=== PATIENT | female | born 2000 | race Caucasian/White ===

== ENCOUNTER 2018-05-06 00:29 | Inpatient (IN) | payer OTHER, MEDICAID ==
[2018-05-07] MEDS ORDERED: Ondansetron 4 MG/2 ML SDV IV PRN (00:01)
[2018-05-07] MEDS ORDERED: Methylergonovine 0.2 MG/1 ML Amp IM PRN (00:01)
[2018-05-07] MEDS ORDERED: Lidocaine 1% 30 ML SDV INJECT PRN (00:01)
[2018-05-07] MEDS ORDERED: Carboprost Tromethamine 250 MCG/1 ML Amp IM PRN (00:01)
[2018-05-07] MEDS ORDERED: Misoprostol 400 MCG (4 X 100 MCG TAB) RECTAL PRN (00:01)
[2018-05-07] MEDS ORDERED: Acetaminophen 325 MG Tab PO PRN ×2 (00:01)
[2018-05-07] MEDS ORDERED: Lactated Ringers 500 ML IV ONE (00:01)
[2018-05-07] MEDS ORDERED: Oxytocin/Normal Saline 30 UNIT/500 ML BAG IV SCH ×2 (00:01)
[2018-05-07] MEDS ORDERED: Tranexamic Acid 1,000 MG in Sodium Chloride 0.9% 100 ML IV PRN (00:01)
[2018-05-07] MEDS ORDERED: Sodium Chloride 0.9% 10 ML Syringe FLUSH PRN (00:01)
[2018-05-07] MEDS: Misoprostol 25 MCG (1/4 of 100 MCG) Tab VAG PRN ×6 (00:59→21:49)
--- NOTE | 2018-05-07 01:19 | PCM.LDHP ---
<Prema Elkins M - Last Filed: 05/07/18 01:34> L&D History of Present Illness - General Date of Service: 05/07/18 Admit Problem/Dx: Patient Status Order with Admit Dx/Problem 05/07/18 00:01 Patient Status [ADT] Routine Admission Diagnosis/Problem Admission Diagnosis/Problem Induction of labor 05/07/18 01:15 Source of Information: Patient History Limitations: Reports: No Limitations - History of Present Illness Introduction:: Megan is a 17 year-old presenting for induction of labor. She denies vaginal bleeding, leakage of fluid, or regular contractions. has been complicated by gonorrhea which was treated and test of cure confirmed. She denies headache, blurry vision, abdominal pain, shortness of breath, and leg edema. - Related Data Allergies/Adverse Reactions: Allergies Allergy/AdvReac Type Severity Reaction Status Date / Time No Known Allergies Allergy Verified 05/07/18 00:59 Home Medications: Home Meds Vits #93/Iron Fum/FA [ Formula Tablet] 1 tab PO DAILY 05/07/18 [History] Past Medical History Cardiovascular History: Reports: None Respiratory History: Reports: None Gastrointestinal History: Reports: None Genitourinary History: Reports: None : 1 Para: 0 Social & Family History - Family History Family Medical History: Noncontributory H&P Review of Systems - Review of Systems: Review Of Systems: See Below General: Reports: No Symptoms. Denies: Fever, Chills, Fatigue HEENT: Reports: No Symptoms Pulmonary: Reports: No Symptoms. Denies: Shortness of Breath Cardiovascular: Reports: No Symptoms Gastrointestinal: Reports: No Symptoms. Denies: Abdominal Pain, Nausea Genitourinary: Reports: No Symptoms Musculoskeletal: Reports: No Symptoms Skin: Reports: No Symptoms L&D Exam - Exam Exam: See Below - Vital Signs Weight: 95.254 kg - OB Specific Contraction Duration (sec): None Contraction Frequency (min): None Movement: Active Heart Rate (FHR) Variability: Moderate (6-25 bmp) Presentation: Vertex, confirmed by bedside US - Exam General: Alert, Oriented, Cooperative, Other (No distress) HEENT: Conjunctiva Clear, EOMI Neck: Supple Lungs: Clear to Auscultation, Normal Respiratory Effort Cardiovascular: Regular Rate, Regular Rhythm, Other (No murmur) GI/Abdominal Exam: Normal Bowel Sounds, Non-Tender, Other (Gravid) Genitourinary: Other (Sterile cervical exam: 1cm/60%/-2) Extremities: No Pedal Edema. No: Castillo's Sign Skin: Warm, Dry, Intact - Patient Data Lab Results Last 24 hrs: Laboratory Results - last 24 hr 05/07/18 Range/Units 00:40 WBC 11.0 H (5.0-10.0) 10^3/uL RBC 3.91 L (4.2-5.4) 10^6/uL Hgb 12.0 (12.0-16.0) g/dL Hct 34.7 L (37.0-47.0) % MCV 88.7 (80-100) fL MCH 30.7 (27.0-34.0) pg MCHC 34.6 (33.0-35.0) g/dL Plt Count 243 (150-450) 10^3/uL Result Diagrams: 05/07/18 00:40 - Problem List (1) Encounter for induction of labor SNOMED Code(s): 033211791 ICD Code: Z34.90 - ENCNTR FOR SUPRVSN OF NORMAL , UNSP, UNSP TRIMESTER Status: Acute Current Visit: Yes Problem List Initiated/Reviewed/Updated: Yes Orders Last 24hrs: Active Orders 24 hr Category Date Time Status Patient Status [ADT] Routine ADT 05/07/18 00:01 Active Communication Order [RC] ASDIRECTED Care 05/07/18 00:01 Active Communication Order [RC] ASDIRECTED Care 05/07/18 00:01 Active Communication Order [RC] ASDIRECTED Care 05/07/18 00:01 Active Communication Order [RC] ASDIRECTED Care 05/07/18 00:01 Active Communication Order [RC] ASDIRECTED Care 05/07/18 00:01 Active Communication Order [RC] ASDIRECTED Care 05/07/18 00:01 Active Heart Tones [RC] PER UNIT ROUTINE Care 05/07/18 00:01 Active Monitoring [RC] PER UNIT ROUTINE Care 05/07/18 00:01 Active Non Stress Test [RC] PER UNIT ROUTINE Care 05/07/18 00:01 Active Non Stress Test [RC] PER UNIT ROUTINE Care 05/07/18 00:01 Active Notify Provider Vital Signs OB [RC] ASDIRECTED Care 05/07/18 00:01 Active Notify Provider [RC] PRN Care 05/07/18 00:01 Active Notify Provider [RC] PRN Care 05/07/18 00:01 Active Notify Provider [RC] PRN Care 05/07/18 00:01 Active Notify Provider [RC] STAT Care 05/07/18 00:01 Active Peripheral IV Care [RC] . DIRECTED Care 05/07/18 00:01 Active Pump Management, Intrathecal [RC] ASDIRECTED Care 05/07/18 00:01 Active Up ad Deborah [RC] ASDIRECTED Care 05/07/18 00:01 Active Up ad Deborah [RC] PER UNIT ROUTINE Care 05/07/18 00:01 Active Vaginal Exam [RC] PRN Care 05/07/18 00:01 Active Vital Signs [RC] PER UNIT ROUTINE Care 05/07/18 00:01 Active Vital Signs [RC] PER UNIT ROUTINE Care 05/07/18 00:01 Active Acetaminophen [Tylenol] Med 05/07/18 00:01 Active 650 mg PO Q4H PRN Acetaminophen [Tylenol] Med 05/07/18 00:01 Active 650 mg PO Q4H PRN Carboprost Tromethamine [Hemabate DS] Med 05/07/18 00:01 Active 250 mcg IM ASDIRECTED PRN Lactated Ringers [Ringers, Lactated] 1,000 ml Med 05/07/18 00:01 Active IV ASDIRECTED Lidocaine 1% [Xylocaine-MPF 1%] Med 05/07/18 00:01 Active 10 ml INJECT ASDIRECTED PRN Methylergonovine [Methergine] Med 05/07/18 00:01 Active 0.2 mg IM ASDIRECTED PRN Ondansetron [Zofran] Med 05/07/18 00:01 Active 4 mg IV Q4H PRN Oxytocin/Normal Saline [Pitocin in NS 30 UNIT/500 ML] Med 05/07/18 00:01 Active 30 unit in 500 ml IV TITRATE Sodium Chloride 0.9% [Saline Flush] Med 05/07/18 00:01 Active 10 ml FLUSH ASDIRECTED PRN Tranexamic Acid [Cyklokapron] 1,000 mg Med 05/07/18 00:01 Active Sodium Chloride 0.9% [Normal Saline] 100 ml IV ONETIME miSOPROStol [Cytotec] Med 05/07/18 00:01 Active 25 mcg VAG Q4H PRN miSOPROStol [Cytotec] Med 05/07/18 00:01 Active 800 mcg RECTAL ASDIRECTED PRN Peripheral IV Insertion Adult [OM.PC] Urgent Oth 05/07/18 00:01 Ordered Saline Lock Insert [OM.PC] Routine Oth 05/07/18 00:01 Ordered Resuscitation Status Routine Resus Stat 05/06/18 08:44 Ordered Medication Orders Acetaminophen (Tylenol) 650 mg PO Q4H PRN PRN Reason: Pain (Mild 1-3) and fever Acetaminophen (Tylenol) 650 mg PO Q4H PRN PRN Reason: Pain/Fever Carboprost Tromethamine (Hemabate Ds) 250 mcg IM ASDIRECTED PRN PRN Reason: HEMORRHAGE Lactated Ringer's (Ringers, Lactated) 1,000 mls @ 125 mls/hr IV ASDIRECTED LJ Oxytocin/Sodium Chloride (Pitocin In Ns 30 Unit/500 Ml) 30 unit in 500 mls @ 2 mls/hr IV TITRATE LJ; Protocol Tranexamic Acid 1,000 mg/ (Sodium Chloride) 110 mls @ 660 mls/hr IV ONETIME PRN PRN Reason: Bleeding Lidocaine HCl (Xylocaine-Mpf 1%) 10 ml INJECT ASDIRECTED PRN PRN Reason: Perineal Repair Methylergonovine Maleate (Methergine) 0.2 mg IM ASDIRECTED PRN PRN Reason: Hemorrhage Misoprostol (Cytotec) 800 mcg RECTAL ASDIRECTED PRN PRN Reason: Hemorrhage Misoprostol (Cytotec) 25 mcg VAG Q4H PRN PRN Reason: cervical ripening Last Admin: 05/07/18 00:59 Dose: 25 mcg Ondansetron HCl (Zofran) 4 mg IV Q4H PRN PRN Reason: Nausea/Vomiting Sodium Chloride (Saline Flush) 10 ml FLUSH ASDIRECTED PRN PRN Reason: Keep Vein Open Assessment/Plan Comment:: Patient is a 17 year-old female presenting for induction of labor. GBS negative. Vertex presentation confirmed. Will proceed with placement of cytotec for cervical ripening. Plan to reassess cervix in 4 hours. <Alphonse Aleman Nicole - Last Filed: 05/07/18 08:47> L&D History of Present Illness - General Admit Problem/Dx: Patient Status Order with Admit Dx/Problem 05/07/18 00:01 Patient Status [ADT] Routine Admission Diagnosis/Problem Admission Diagnosis/Problem complications L&D Exam - Vital Signs Vital Signs: Last Vital Signs Temp 97.4 F 05/07/18 04:25 Pulse 79 05/07/18 04:25 Resp 18 05/07/18 04:25 BP 112/57 L 05/07/18 04:25 Pulse Ox 100 05/07/18 00:22 - Patient Data Lab Results Last 24 hrs: Laboratory Results - last 24 hr 05/07/18 Range/Units 00:40 WBC 11.0 H (5.0-10.0) 10^3/uL RBC 3.91 L (4.2-5.4) 10^6/uL Hgb 12.0 (12.0-16.0) g/dL Hct 34.7 L (37.0-47.0) % MCV 88.7 (80-100) fL MCH 30.7 (27.0-34.0) pg MCHC 34.6 (33.0-35.0) g/dL Plt Count 243 (150-450) 10^3/uL Result Diagrams: 05/07/18 00:40 Orders Last 24hrs: Active Orders 24 hr Category Date Time Status Patient Status [ADT] Routine ADT 05/07/18 00:01 Active Communication Order [RC] ASDIRECTED Care 05/07/18 00:01 Active Communication Order [RC] ASDIRECTED Care 05/07/18 00:01 Active Communication Order [RC] ASDIRECTED Care 05/07/18 00:01 Active Communication Order [RC] ASDIRECTED Care 05/07/18 00:01 Active Communication Order [RC] ASDIRECTED Care 05/07/18 00:01 Active Communication Order [RC] ASDIRECTED Care 05/07/18 00:01 Active Heart Tones [RC] PER UNIT ROUTINE Care 05/07/18 00:01 Active Monitoring [RC] PER UNIT ROUTINE Care 05/07/18 00:01 Active Non Stress Test [RC] PER UNIT ROUTINE Care 05/07/18 00:01 Active Notify Provider Vital Signs OB [RC] ASDIRECTED Care 05/07/18 00:01 Active Notify Provider [RC] PRN Care 05/07/18 00:01 Active Notify Provider [RC] PRN Care 05/07/18 00:01 Active Notify Provider [RC] PRN Care 05/07/18 00:01 Active Notify Provider [RC] STAT Care 05/07/18 00:01 Active Peripheral IV Care [RC] . DIRECTED Care 05/07/18 00:01 Active Pump Management, Intrathecal [RC] ASDIRECTED Care 05/07/18 00:01 Active Up ad Deborah [RC] ASDIRECTED Care 05/07/18 00:01 Active Up ad Deborah [RC] PER UNIT ROUTINE Care 05/07/18 00:01 Active Vaginal Exam [RC] PRN Care 05/07/18 00:01 Active Vital Signs [RC] PER UNIT ROUTINE Care 05/07/18 00:01 Active Vital Signs [RC] PER UNIT ROUTINE Care 05/07/18 00:01 Active Acetaminophen [Tylenol] Med 05/07/18 00:01 Active 650 mg PO Q4H PRN Acetaminophen [Tylenol] Med 05/07/18 00:01 Active 650 mg PO Q4H PRN Carboprost Tromethamine [Hemabate DS] Med 05/07/18 00:01 Active 250 mcg IM ASDIRECTED PRN Lactated Ringers [Ringers, Lactated] 1,000 ml Med 05/07/18 00:01 Active IV ASDIRECTED Lidocaine 1% [Xylocaine-MPF 1%] Med 05/07/18 00:01 Active 10 ml INJECT ASDIRECTED PRN Methylergonovine [Methergine] Med 05/07/18 00:01 Active 0.2 mg IM ASDIRECTED PRN Ondansetron [Zofran] Med 05/07/18 00:01 Active 4 mg IV Q4H PRN Oxytocin/Normal Saline [Pitocin in NS 30 UNIT/500 ML] Med 05/07/18 00:01 Active 30 unit in 500 ml IV TITRATE Sodium Chloride 0.9% [Saline Flush] Med 05/07/18 00:01 Active 10 ml FLUSH ASDIRECTED PRN Tranexamic Acid [Cyklokapron] 1,000 mg Med 05/07/18 00:01 Active Sodium Chloride 0.9% [Normal Saline] 100 ml IV ONETIME miSOPROStol [Cytotec] Med 05/07/18 00:01 Active 25 mcg VAG Q4H PRN miSOPROStol [Cytotec] Med 05/07/18 00:01 Active 800 mcg RECTAL ASDIRECTED PRN Peripheral IV Insertion Adult [OM.PC] Urgent Oth 05/07/18 00:01 Ordered Saline Lock Insert [OM.PC] Routine Oth 05/07/18 00:01 Ordered Resuscitation Status Routine Resus Stat 05/06/18 08:44 Ordered Medication Orders Acetaminophen (Tylenol) 650 mg PO Q4H PRN PRN Reason: Pain (Mild 1-3) and fever Acetaminophen (Tylenol) 650 mg PO Q4H PRN PRN Reason: Pain/Fever Carboprost Tromethamine (Hemabate Ds) 250 mcg IM ASDIRECTED PRN PRN Reason: HEMORRHAGE Lactated Ringer's (Ringers, Lactated) 1,000 mls @ 125 mls/hr IV ASDIRECTED LJ Oxytocin/Sodium Chloride (Pitocin In Ns 30 Unit/500 Ml) 30 unit in 500 mls @ 2 mls/hr IV TITRATE LJ; Protocol Tranexamic Acid 1,000 mg/ (Sodium Chloride) 110 mls @ 660 mls/hr IV ONETIME PRN PRN Reason: Bleeding Lidocaine HCl (Xylocaine-Mpf 1%) 10 ml INJECT ASDIRECTED PRN PRN Reason: Perineal Repair Methylergonovine Maleate (Methergine) 0.2 mg IM ASDIRECTED PRN PRN Reason: Hemorrhage Misoprostol (Cytotec) 800 mcg RECTAL ASDIRECTED PRN PRN Reason: Hemorrhage Misoprostol (Cytotec) 25 mcg VAG Q4H PRN PRN Reason: cervical ripening Last Admin: 05/07/18 05:06 Dose: 25 mcg Admin: 05/07/18 00:59 Dose: 25 mcg Ondansetron HCl (Zofran) 4 mg IV Q4H PRN PRN Reason: Nausea/Vomiting Sodium Chloride (Saline Flush) 10 ml FLUSH ASDIRECTED PRN PRN Reason: Keep Vein Open Assessment/Plan Comment:: seen and agreed. DCW
--- NOTE | 2018-05-07 05:22 | PCM.PNLD ---
Labor Progress Note - VS & Meds Vital Signs: Last Vital Signs Temp 97.5 F 05/07/18 01:30 Pulse 87 05/07/18 01:30 Resp 16 05/07/18 01:30 BP 134/77 05/07/18 01:30 Pulse Ox 100 05/07/18 00:22 Active Medications: Current Medications Acetaminophen (Tylenol) 650 mg PO Q4H PRN PRN Reason: Pain (Mild 1-3) and fever Acetaminophen (Tylenol) 650 mg PO Q4H PRN PRN Reason: Pain/Fever Carboprost Tromethamine (Hemabate Ds) 250 mcg IM ASDIRECTED PRN PRN Reason: HEMORRHAGE Lactated Ringer's (Ringers, Lactated) 1,000 mls @ 125 mls/hr IV ASDIRECTED LJ Oxytocin/Sodium Chloride (Pitocin In Ns 30 Unit/500 Ml) 30 unit in 500 mls @ 2 mls/hr IV TITRATE LJ; Protocol Tranexamic Acid 1,000 mg/ (Sodium Chloride) 110 mls @ 660 mls/hr IV ONETIME PRN PRN Reason: Bleeding Lidocaine HCl (Xylocaine-Mpf 1%) 10 ml INJECT ASDIRECTED PRN PRN Reason: Perineal Repair Methylergonovine Maleate (Methergine) 0.2 mg IM ASDIRECTED PRN PRN Reason: Hemorrhage Misoprostol (Cytotec) 800 mcg RECTAL ASDIRECTED PRN PRN Reason: Hemorrhage Misoprostol (Cytotec) 25 mcg VAG Q4H PRN PRN Reason: cervical ripening Last Admin: 05/07/18 05:06 Dose: 25 mcg Ondansetron HCl (Zofran) 4 mg IV Q4H PRN PRN Reason: Nausea/Vomiting Sodium Chloride (Saline Flush) 10 ml FLUSH ASDIRECTED PRN PRN Reason: Keep Vein Open Discontinued Medications Lactated Ringer's (Ringers, Lactated) 500 mls @ 500 mls/hr IV .BOLUS ONE Stop: 05/07/18 01:00 - Uterine Contractions Uterine Monitoring Mode: External [place] Contraction Frequency (min): Approximately every 2 minutes Contraction Duration (sec): 1 minute Contraction Intensity: Mild Uterine Resting Tone: Soft - Monitoring Heart Rate (FHR) Baseline: 120 Heart Rate (FHR) Variability: Moderate (6-25 bmp) Accelerations: Present, 15x15 Strip Review: Category I - Vaginal Exam Dilation (cm): 1 Effacement (Percent): 60 Station: -2 Cervical Position: Midposition Sterile Vaginal Exam Performed By: Prema Elkins Vaginal Exam Comment: cytotec placed with this exam
--- NOTE | 2018-05-07 10:12 | PN ---
DATE: 05/07/2018 SUBJECTIVE: The patient denies any headaches, visual changes, or upper abdominal pain. She does not feel much for contractions. OBJECTIVE: heart tones in the 120s to 130s range. Vaginal exam to be done around 9:09 when the next dose of Cytotec is due. Blood pressure 138/91 and of note, initial blood pressure was 141/85, recheck was 136/84. She is now status post NST followed by Cytotec x2 and due for a third dose at 9:09. ASSESSMENT: 1. Intrauterine at 40 and 2/7 weeks by 6 and 6/7-week ultrasound with suspected gestational versus transient hypertension versus preeclampsia. We will do labs for preeclampsia. Follow blood pressures closely. Follow for signs or symptoms of severe preeclampsia. 2. Group B Streptococcus negative. 3. History of gonococcal disease treated in 09/2017, negative in 03/2018, in a G1, P0. PLAN: As above. Please see orders for further details. Plans were discussed with the patient and her father. They understand and agree. [facility] /[id number]
--- NOTE | 2018-05-07 10:24 | OBOUT ---
DATE: 05/07/2018 DATE AND TIME OF NST: Date: 05/07/2018 Time: 0040 hours to 0100 hours. REASON FOR NST: 1. Intrauterine at 40 and 2/7 weeks by 6 and 6/7-week ultrasound. 2. GBS negative. 3. Positive Gonorrhea treated in 09/2017, negative in 03/2018. 4. G1, P0. NST INTERPRETATION: During this time period, heart tone baseline is approximately 125 to 130 and there are at least two 15 x 15 beat per minute accelerations, making this strip reactive. It is also noted to be reassuring. Tocometer reveals potential of some irritability. No contractions. ASSESSMENT: 1. Nonstress test, reactive and reassuring. 2. Tocometer with occasional irritability. No contractions felt. Blood pressure initially 141/85, recheck 136/84, heart rate between 91 and 101, and temperature 97.5. PLAN: Please see H and P done and updated through [employer] with Dr. Elkins. I suspect transient hypertension related to nervousness as blood pressure came down thereafter. Cytotec was given, and the patient was followed closely thereafter. For H and P, records were called for, reviewed, and supplemented by the patient's history as well as review of systems reviewed fully. Please see H and P and [facility]-updated scan chart. [facility] /[id number]
[2018-05-07] MEDS ORDERED: Misoprostol 50 MCG (1/2 of 100 MCG) Tab VAG ONE (21:40)
[2018-05-08] MEDS: Lactated Ringers 1,000 ML IV SCH ×4 (02:04→23:45)
[2018-05-08] MEDS ORDERED: Nalbuphine 10 MG/1 ML Vial IM ONE (07:21)
[2018-05-08] MEDS ORDERED: Bupivacaine 0.75%/D5W 2 ML Amp ONE (09:43)
[2018-05-08] MEDS ORDERED: EPINEPHrine 1 MG/ML SDV ONE (09:44)
[2018-05-08] MEDS ORDERED: fentaNYL 100 MCG/2 ML SDV ONE (09:44)
--- NOTE | 2018-05-08 09:54 | PN ---
DATE: 05/07/2018 SUBJECTIVE: The patient is feeling occasional contractions. OBJECTIVE: heart tones in the 125 to 130 range. Acceleration noted with vaginal exam. Tocometer reveals occasional contraction. Vaginal exam reveals her to be 1.5 cm, 60% to 70% effaced, -1 station, vertex suspected, and Cytotec 25 mcg was subsequently placed for making this her fourth total dose. ASSESSMENT: 1. Intrauterine at 40 and 2/7 weeks by 6 and 6/7-week ultrasound. 2. Group B streptococcus negative. 3. G1, P0 with suspected transient hypertension. Blood pressures have become more normalized. We will continue to follow clinically and closely for signs or symptoms of preeclampsia. Preeclampsia labs were done as well. Please see [facility] for further details. PLAN: Fourth dose of Cytotec has been placed. We will follow clinically and closely, re-evaluate as needed, and in approximately 4 hours re-evaluate for potential need for another Cytotec if need be. [facility] /[id number]
--- NOTE | 2018-05-08 09:56 | PN ---
DATE: 05/08/2018 SUBJECTIVE: The patient's contractions are getting stronger. She is now status post Cytotec x6, and Pitocin augmentation was started last night. OBJECTIVE: heart tones have been in the 120s to 130s, appear to be reassuring. Tocometer when reading, contractions are every 1.5 to 3 to 4 minutes apart. Vaginal exam reveals to be 2 cm, 80% effaced, -1 station, and vertex suspected. Artificial rupture of membranes was done after discussion with the patient. Pitocin is currently at 10 milliunits per minute. ASSESSMENT: 1. Intrauterine at 40 and 2/7 weeks by 6 and 6/7-week ultrasound. 2. Group B streptococcus negative. 3. G1, P0 with history of gonococcal disease that was treated and negative in 03/2018 with suspected gestational versus transient hypertension. Her blood pressures have been elevated at times, and then others have been within normal limits. 4. Preeclampsia labs were done, felt to be within normal limits with protein- creatinine ratio of 0.15. PLAN: Now status post Cytotec x6, Pitocin augmentation, and artificial rupture of membranes as above. We will continue to follow up clinically and closely. The patient understands and agrees with the above treatment plan. [facility] /[id number]
--- NOTE | 2018-05-08 10:15 | PN ---
DATE: 05/08/2018 SUBJECTIVE: The patient's contractions are getting stronger. She continued to have vaginal leaking. OBJECTIVE: heart tones in the 125s to 130s with an acceleration noted with vaginal exam. Tocometer has poor reading for contractions and unsure where they are at. Vaginal exam reveals her to be 3 cm, 80% effaced, -1 station, vertex suspected, and IUPC placed after discussion with the patient. ASSESSMENT: 1. Intrauterine at 40 and 3/7 weeks by a 6 and 6/7-week ultrasound. 2. Group B Streptococcus negative. 3. G1, P0 with suspected gestational hypertension. 4. Now status post nonstress test, Cytotec x6, Pitocin augmentation, artificial rupture of membranes, and IUPC placed as above. PLAN: We will continue to follow clinically and closely. We will follow her contraction pattern closely as well. She is starting to have some cervical change, and this was discussed with the patient. [facility] /[id number]
--- NOTE | 2018-05-08 10:53 | PCM.PRNOTE ---
- Free Text/Narrative Note: Requested to provide analgesia to full term patient in severe pain. Upon entering the room, patient is lying on right side complaining of severe abdominal/pelvic pain and discomfort. Procedure was discussed with patient including adverse outcomes and expectations. Pt consented to analgesia, SAB/ IT. Pt placed into a proper sitting position. Landmarks for SAB/IT were identified and marked. Hands were washed and appropriate PPE was applied. Back was prepped with betadine x3. A sterile, transparent, fenestrated drape was applied. Excess betadine was removed. Using 3 mL of a 1% lidocaine solution , a skin wheel was placed at the L2/L3 interspace. A 24 ga (4 inch) Pencan spinal needle was inserted until positive for CSF. Negative for heme or paresthesias. Injected fentanyl 30 mcg, sufentanil 25 mcg, and 9 mg of a 0.75% bupivacaine solution with an epi wash. Pt was placed left lateral position for approximately 20 minutes. There were zero complications or adverse outcomes. Will continue to monitor. Procedure Date & Time: 05-08-2018 [id number]
[2018-05-08] MEDS ORDERED: Oxytocin/Normal Saline 60 UNIT/1,000 ML BAG ONE (12:03)
[2018-05-08] MEDS ORDERED: diphenhydrAMINE 50 MG/ML SDV IVPUSH PRN (12:21)
[2018-05-08] MEDS ORDERED: Ondansetron 4 MG/2 ML SDV IV PRN (12:21)
[2018-05-08] MEDS ORDERED: ceFAZolin 2 GM in Premix Bag 1 BAG IV ONE (12:21)
[2018-05-08] MEDS ORDERED: Naloxone 2 MG/2 ML Syringe IVPUSH PRN (12:21)
[2018-05-08] MEDS ORDERED: ePHEDrine 50 MG/ML SDV IVPUSH PRN (12:21)
[2018-05-08] MEDS ORDERED: Oxytocin/Normal Saline 30 UNIT/500 ML BAG IV SCH (12:30)
[2018-05-08] MEDS ORDERED: Sodium Chloride 0.9% 100 ML ONE (12:32)
[2018-05-08] MEDS ORDERED: Morphine PF 30 MG/30 ML PCA Vial IV PRN (13:12)
[2018-05-08] MEDS ORDERED: Morphine PF 150 MG/30 ML PCA Syringe IV PRN (13:16)
[2018-05-08] MEDS: Simethicone 80 MG Tab.Chew PO SCH ×3 (21:18→21:20)
[2018-05-08] MEDS: Ketorolac 30 MG/ML SDV IVPUSH SCH (21:20)
[2018-05-09] MEDS: Ketorolac 30 MG/ML SDV IVPUSH SCH ×2 (03:19→09:58)
[2018-05-09] MEDS: Lactated Ringers 1,000 ML IV SCH (08:06)
[2018-05-09] MEDS: Simethicone 80 MG Tab.Chew PO SCH ×4 (10:00→23:25)
[2018-05-09] MEDS: Prenatal Multivitamin with Calcium/Folic Acid/Iron Tab PO SCH (10:00)
[2018-05-09] MEDS: Docusate Sodium 100 MG Cap PO PRN (10:01)
[2018-05-09] MEDS: Acetaminophen/oxyCODONE 325-5 MG Tab PO PRN ×2 (11:34→17:35)
--- NOTE | 2018-05-09 16:52 | PN ---
DATE: 05/09/2018 LOCATION: [facility] SUBJECTIVE: The patient is postoperative day #1, status post primary for failed -induced hypertension induction. The mom and baby are both doing well. The patient is currently using her ENGINEERING TECHNICAL WRITER. OBJECTIVE: Vital Signs: The patient's blood pressure 111-135/70-82, heart rate 74 to 122, and the patient's temp 37.5. She has been afebrile. Respiratory rate 14 to 16, and O2 sat 96% to 99%. Abdomen: Benign. Extremities: No tenderness, no edema. Hemoglobin prior to delivery was 12.1. This morning, white blood cell count 12.9, and platelets 135. ASSESSMENT AND PLAN: Postoperative day #1, status post primary section for failed PIH induction. The patient's blood pressures are improving. We will d/c the ENGINEERING TECHNICAL WRITER, and we will continue p.o. pain relief. We will d/c the [place]. Make sure she can void and continue to encourage ambulating and p.o. intake, and we will start iron due to the mild anemia. Otherwise, continue postoperative care. [facility] /[id number] MAHENDRA
[2018-05-09] MEDS: Ibuprofen 800 MG Tab PO PRN (17:35)
[2018-05-10] MEDS: Prenatal Multivitamin with Calcium/Folic Acid/Iron Tab PO SCH (09:49)
[2018-05-10] MEDS: Acetaminophen/oxyCODONE 325-5 MG Tab PO PRN ×3 (09:50→20:33)
[2018-05-10] MEDS: Ibuprofen 800 MG Tab PO PRN ×2 (09:50→20:32)
[2018-05-10] MEDS: Simethicone 80 MG Tab.Chew PO SCH ×4 (09:50→20:32)
--- NOTE | 2018-05-10 13:56 | PN ---
DATE: 05/10/2018 LOCATION: [facility]. SUBJECTIVE: The patient is postoperative day #2 from a primary low-transverse C - section for failed PIH induction. Mom and baby are both doing well. She is ambulating, voiding, tolerating p.o., had good pain control. PHYSICAL EXAMINATION: VITAL SIGNS: The patient is afebrile. Heart rate 106 to 125, blood pressure 93 - 118/50-82, respiratory rate 14 to 16, O2 sat 96 to 98%. ABDOMEN: Benign. Fundus is firm. Incision is healing well. LABORATORY DATA: The patient's blood type is B positive. She is rubella immune. Preoperatively, the patient's hemoglobin was normal; postoperatively, it is 9.0; platelets 175 consistent with some mild acute blood loss anemia. ASSESSMENT AND PLAN: Postoperative day #2, status post primary low-transverse C - section. Mom and baby are both doing well. We will continue iron and postoperative care and likely discharge tomorrow. [facility] /[id number] MTDD
[2018-05-10] MEDS: Docusate Sodium 100 MG Cap PO PRN (20:32)
[2018-05-11] MEDS: Simethicone 80 MG Tab.Chew PO SCH (09:04)
[2018-05-11] MEDS: Docusate Sodium 100 MG Cap PO PRN (09:04)
[2018-05-11] MEDS: Prenatal Multivitamin with Calcium/Folic Acid/Iron Tab PO SCH (09:04)
[2018-05-11] MEDS: Ibuprofen 800 MG Tab PO PRN (09:05)
--- NOTE | 2018-05-11 10:57 | PN ---
DATE: 05/08/2018 SUBJECTIVE: The patient is status post intrathecal. She has been resting quietly. No pain is felt. OBJECTIVE: heart tones variability has been minimal around the 120s, though with vaginal exam, acceleration is noted. Early decelerations are detected. Tocometer reveals contractions anywhere from 1.5 to 6 minutes apart. Vaginal exam reveals her to be complete with mild caput noted at 0 station. ASSESSMENT AND PLAN: 1. Intrauterine , now 40 and 3/7 weeks by 6 and 6/7-week ultrasound. 2. Group B streptococcus negative. 3. G1, P0 with gestational hypertension. Blood pressure under control now, status post intrathecal as well as 6 doses of Cytotec, Pitocin augmentation, artificial rupture of membranes, and IUPC placement. Due to concerns with heart tones and now that she is in the second stage of labor, will start pushing. Prior to this, oxygen has been started as well as positional changes and IV fluids; and we will continue to follow clinically and closely at this point in time and start the patient pushing. [facility] /[id number]
--- NOTE | 2018-05-11 11:03 | PN ---
DATE: 05/08/2018 SUBJECTIVE: The patient has been in the second stage of labor. She has been pushing. Nurses note vaginal bleeding, and they called me with concerns with heart tones with decelerations down into the 70s to 80s. OBJECTIVE: Vaginal exam reveals to be complete with good pushing effort, minimal descent, and at about a 0 station. heart tones have minimal variability at times as well as appears to be recurrent decelerations as low as in the 70s and 80s. After contractions, she had decelerations down into the 80s to 90s that persisted despite vaginal exam. In addition, more vaginal bleeding was noted with bright red blood from the vaginal orifice. ASSESSMENT AND PLAN: Intrauterine , term, in a group B streptococcus negative, G1, P0, with now nonreassuring status and increased vaginal bleeding. I did discuss with the patient proceeding to the OR as soon as possible and doing a stat section. This will be under general anesthesia. I did discuss with her quickly the risks, benefits, alternatives, and complications of section including, but not limited to, infection, bleeding, damage to internal organs such as bowel, bladder, tubes, uterus, ovaries, and sometimes fetus rarely needing a blood transfusion or further surgery and even rarer maternal or . She understands, agrees, and wishes to proceed. Verbal consent was obtained. Written consent will be obtained if possible with the amount of time given, and we will proceed to the OR in a stat fashion. [facility] /[id number]
--- NOTE | 2018-05-11 11:36 | OR ---
DATE: 05/07/2018 PREOPERATIVE DIAGNOSES: 1. Intrauterine at 40 and 3/7 weeks by a 6 and 6/7-week ultrasound. 2. Nonreassuring status. 3. Increased vaginal bleeding in the second stage of labor. 4. Group B Streptococcus negative. 5. Positive gonococcal disease treated in 09/2017 and negative in 03/2018. 6. 1, para 0. 7. Gestational versus transient hypertension. POSTOPERATIVE DIAGNOSES: 1. Intrauterine at 40 and 3/7 weeks by a 6 and 6/7-week ultrasound, delivered. 2. Nonreassuring status. 3. Increased vaginal bleeding in the second stage of labor. 4. Group B Streptococcus negative. 5. Positive gonococcal disease treated in 09/2017 and negative in 03/2018. 6. 1, para 0. 7. Gestational versus transient hypertension. 8. Cord wrapped around right foot, reduced bluntly with delivery. 9. Uterine atony, requiring Methergine x1 and asking for Cytotec to be given at the end of the case per rectum 800 mcg. PROCEDURES PERFORMED PRIOR TO THIS: 1. On 05/07/2018, she had nonstress test and Cytotec x6. 2. On 05/08/2018, Pitocin augmentation, artificial rupture of membranes, intrauterine pressure catheter, and then subsequently primary low transverse section with 2-layer uterine closure. ASSOCIATE PROFESSOR OF MEDIA ARTS: Katy Carias MD. ANESTHESIA: General. ESTIMATED BLOOD LOSS: 750 mL. INTRAVENOUS FLUIDS: 900 mL. URINE OUTPUT: 50 mL, initially red tinged and now clearing to more of a yellow clear color. START: 1237 hours. UTERINE INCISION: 1237 hours. DELIVERY: 1238 hours. STOP: 1252 hours. FINDINGS: Male. scores of 6 and 9. Weight pending. DESCRIPTION OF PROCEDURE IN DETAIL: A stat was called. Blanton was placed on the OB floor, and after proper consent was obtained, the patient was brought to the operating room where abdomen was prepped and draped in normal sterile fashion using Betadine due to stat nature of . General anesthesia was then induced. A skin incision was then made on the lower abdomen in a transverse Pfannenstiel- type fashion. This was carried down the fascia and scored in midline. Subcutaneous tissue was raked laterally and bluntly, and fascial incision was extended laterally as well as superiorly and inferiorly with blunt technique, and rectus pyramidalis muscles dissected from the fascia using blunt technique. Rectus muscles were in the midline with blunt technique. Abdominal cavity was entered in blunt technique, and the incision was extended superiorly and inferiorly with blunt technique. David O large retractor was then introduced and used. Vesicouterine peritoneum was identified and incised in a transverse fashion with Metzenbaum scissors, and bladder flap was made digitally. Curvilinear incision was made on the lower uterine segment at 1237 hours. Uterus was entered sharply, and clear bloody fluid returned. Uterine incision was extended in a transverse fashion. vertex was then delivered from the pelvis up through the incision followed by rest of the infant with minimal difficulty. Cord wrapped around the right foot was noted and reduced bluntly with delivery. Mouth and nares were suctioned. Cord was doubly clamped and cut and was brought over to the team. Approximately, 10 mL of cord blood was obtained for labs. Placenta was then delivered with gentle cord traction and fundal massage. Uterine cavity was cleared of all blood clots and debris with lap sponge, and Owusu clamps were used to grasp the incision with minimal extension on the left lateral portion approximately at 1 cm sulcus tear inferiorly. Subsequently, uterine incision was then closed in a running locked fashion and tied at lateral margins with 1-0 Vicryl incorporating this minimal sulcus tear. Uterine atony was noted. Methergine was given x1. A second imbricating layer was then applied and tied at lateral margins with 1-0 Vicryl. First inspection of uterine incision revealed hemostasis. David O retractor was then removed, and paracolic gutters were then cleared of all blood clots and debris with lap sponge. Anterior cul-de-sac was then irrigated copiously, and all blood clots and debris were removed. Second and final inspection of the uterine incision and anterior cul-de-sac revealed hemostasis. TXA was called for and also given. Rectus muscles were then reapproximated in midline with a [id number] stitch using 1-0 Vicryl. Subfascial tissue was found to be hemostatic. Fascia was closed in a running fashion and tied at lateral margins with 0 looped PDS. Subcutaneous tissue was irrigated copiously. Hemostasis reassured. Skin was reapproximated with medium magui. Sterile Aquacel dressing was applied. Uterine fundus was firm and massaged at the conclusion of the case -1 below umbilicus with minimal atony. Cytotec was called for to be given after the patient was undraped and dressing was applied. No immediate complications were noted. Sponge, lap, and needle counts were correct. The patient received 2 g of Ancef preoperatively and Pitocin per protocol and will receive Toradol at the conclusion of the case for pain control. Mother and infant are currently stable at the time of dictation. [facility] /[id number]
[2018-05-11] MEDS ORDERED: Ketorolac 30 MG/ML SDV IVPUSH ONE (13:29)
[2018-05-11] MEDS ORDERED: Bupivacaine 0.75%/D5W 2 ML Amp INJECT ONE (13:29)
[2018-05-11] MEDS ORDERED: Lactated Ringers 1,000 ML IV ONE (13:29)
[2018-05-11] MEDS ORDERED: fentaNYL 100 MCG/2 ML SDV ITHECAL ONE (13:29)
[2018-05-11] MEDS ORDERED: Propofol 200 MG/20 ML SDV IV ONE (13:29)
[2018-05-11] MEDS ORDERED: Succinylcholine 200 MG/10 ML MDV IV ONE (13:29)
[2018-05-11] MEDS ORDERED: EPINEPHrine 1 MG/ML SDV IV ONE (13:29)
[2018-05-11] MEDS ORDERED: fentaNYL 250 MCG/5 ML SDV IV ONE (13:29)
--- NOTE | 2018-05-12 11:04 | DISCH ---
ADMITTING DIAGNOSES: 1. Intrauterine at 40-2/7 weeks by 6-6/7 weeks' ultrasound. 2. Group B Streptococcus negative. 3. Gonorrhea and Chlamydia, treated in 09/2017 and negative in 03/2018. 4. 1, para 0. 5. Transient versus gestational hypertension. DISCHARGE DIAGNOSES: 1. Intrauterine at 40-2/7 weeks by 6-6/7 weeks' ultrasound, delivered. 2. Group B Streptococcus negative. 3. Gonorrhea and Chlamydia, treated in 09/2017 and negative in 03/2018. 4. 1, para 0. 5. Transient versus gestational hypertension. 6. Nonreassuring status. 7. Increased vaginal bleeding noted in the second stage of labor. 8. Cord wrapped around right foot, reduced bluntly with delivery. 9. Uterine atony, requiring Methergine x1 and Cytotec at the end of her section. 10.Anemia of acute blood loss, hemoglobin dropping down to 9 from predelivery hemoglobin of 12. PROCEDURES PERFORMED: NST, Cytotec x6, Pitocin augmentation, artificial rupture of membranes, IUPC, and then subsequent primary low transverse with 2- layer uterine closure. Procedure performed by Alphonse Aleman MD. HISTORY OF PRESENT ILLNESS: Please see H and P. SUMMARY OF HOSPITAL COURSE: The patient was admitted on the above date with the above diagnoses, evaluated for gestational versus transient hypertension. She did have intermittent elevated blood pressures qualifying for gestational hypertension. However, preeclampsia labs were negative. She underwent the above procedures and then got into the second stage of labor. During this time period, she had nonreassuring status with increased vaginal bleeding. She was taken to the OR and had a primary low transverse with 2-layer uterine closure under general anesthetic yielding a male with scores of 6 and 9, weighing 7 pounds 10 ounces. Cord wrapped around the right foot reduced bluntly with delivery, as well as uterine atony requiring Methergine and Cytotec at the end of the case. Postoperative day #1 and #2, please see progress note. Postoperative day #3, date of discharge, the patient was tolerating POs, ambulating, urinating, passing flatus, and requesting discharge. PHYSICAL EXAMINATION: Vital Signs: Last set of vitals updated and listed in the chart would be temperature 99.2, heart rate between 79 and 113, blood pressure 132/77, and respiratory rate 16. Lungs: Clear to auscultation bilaterally. Heart: S1 and S2. Regular rate and rhythm. Pelvic: Firm uterus -1 below umbilicus. Aquacel dressing dry and intact. Extremities: Trace pedal edema. No calf pain. LABORATORY DATA: On 05/09/2018, postoperative day #1, hemoglobin dropped down to 9. The patient was asymptomatic and followed closely. CONDITION ON DISCHARGE COMPARED TO CONDITION ON ADMISSION: Improved. DISCHARGE INSTRUCTIONS: 1. Diet: As tolerated. 2. Activity: No lifting more than 20 pounds. No sit-ups, straining, and pelvic rest for the next 6 weeks with immediate return to fertility discussed with the patient. 3. Reasons to return or go to the emergency room were discussed with the patient in detail including, but not limited to, temperature greater than 100.4, foul-smelling discharge, red hot tender breasts, increased vaginal bleeding, or increasing pain, drainage, or redness around the incision. DISCHARGE MEDICATIONS: 1. [id number] Tylenol or ibuprofen for pain. 2. Iron sulfate 325 mg b.i.d. x4 to 6 weeks. FOLLOWUP: Follow up in 2 days from now on 05/13/2018, for staple removal with her baby. I did discuss with her in the interim reasons to return or go to the emergency room in regard to her baby as well. The importance of followup was discussed. [facility] /[id number]
== END 2018-05-11 13:30 | disposition home or self-care (01) | DRG 765 ==
LOC: DL.OBCHECK 00:29 → EDSTATUS 23:14 → DL.OB 05-07 00:12 → OBSVTOIN 05-07 12:38
PROVIDERS: ADMIT Family Medicine; ATTEND Family Medicine
PROC: 3E0P7VZ Introduction of Hormone into Female Reproductive, Via Natural or Artificial Opening (ICD-10-PCS; 2018-05-07)
PROC: 3E0R3BZ Introduction of Anesthetic Agent into Spinal Canal, Percutaneous Approach (ICD-10-PCS; 2018-05-07)
PROC: 10D00Z1 Extraction of Products of Conception, Low, Open Approach (ICD-10-PCS; principal; 2018-05-08)
PROC: 6A550ZT Pheresis of Cord Blood Stem Cells, Single (ICD-10-PCS; principal; 2018-05-08)
PROC: 10907ZC Drainage of Amniotic Fluid, Therapeutic from Products of Conception, Via Natural or Artificial Opening (ICD-10-PCS; 2018-05-08)
PROC: 10H07YZ Insertion of Other Device into Products of Conception, Via Natural or Artificial Opening (ICD-10-PCS; 2018-05-08)
DX: O76 Abnormality in fetal heart rate and rhythm complicating labor and delivery (principal); D62 Acute posthemorrhagic anemia; O72.1 Other immediate postpartum hemorrhage; O13.4 Gestational [pregnancy-induced] hypertension without significant proteinuria, complicating childbirth; Z3A.40 40 weeks gestation of pregnancy; Z37.0 Single live birth; O61.0 Failed medical induction of labor; O90.81 Anemia of the puerperium; O69.81X0 Labor and delivery complicated by cord around neck, without compression, not applicable or unspecified; Z67.20 Type B blood, Rh positive
CPT/HCPCS: 36415; 59025; 59409; 81003; 82565; 82570; 83615; 84156; 84450; 84460; 84520; 84550; 85027; 86850; 86900; 86901; 94010; A9270-GY; J0171; J0330; J0690; J1885; J2210; J2274; J2300; J2590; J2704; J3010; J7050; J7120

== ENCOUNTER 2018-11-09 21:42 | Emergency (ER) | payer MEDICAID, OTHER ==
--- NOTE | 2018-11-09 23:58 | EDM.PDOC ---
ED HPI GENERAL MEDICAL PROBLEM - General Chief Complaint: Respiratory Problem Stated Complaint: DIZZY AND HAS BEEN FAINTING Time Seen by Provider: 11/09/18 23:59 Source of Information: Reports: Patient, RN, RN Notes Reviewed History Limitations: Reports: No Limitations - History of Present Illness INITIAL COMMENTS - FREE TEXT/NARRATIVE: Pt to ER with c/o wheezing, coughing, "blacking out". Friend states the pt did not "go completely out, but was dazed for a while". Patient admits to double vision at times, headache, dizziness with cough. She admits to upper abdominal pain with cough as well. Admits to decreased appetite and chills. Denies N/V/D, fever. 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 ED EXAM, GENERAL - Physical Exam Exam: See Below Exam Limited By: No Limitations General Appearance: Alert, WD/WN, No Apparent Distress Eye Exam: Bilateral Eye: EOMI, Normal Inspection Ears: Normal External Exam, Hearing Grossly Normal Nose: Normal Inspection Throat/Mouth: Normal Inspection, Normal Voice, No Airway Compromise Head: Atraumatic, Normocephalic Neck: Normal Inspection, Supple, Non-Tender, Full Range of Motion Respiratory/Chest: No Respiratory Distress, Lungs Clear, Normal Breath Sounds, No Accessory Muscle Use, Chest Non-Tender Cardiovascular: Normal Peripheral Pulses, Regular Rate, Rhythm, No Edema, No Gallop, No JVD, No Murmur, No Rub Peripheral Pulses: 2+: Radial (L), Radial (R) GI/Abdominal: Normal Bowel Sounds, Soft, Non-Tender (Female) Exam: Deferred Rectal (Female) Exam: Deferred Back Exam: Normal Inspection, Full Range of Motion Extremities: Normal Inspection, Normal Range of Motion, Non-Tender, No Pedal Edema, Normal Capillary Refill Neurological: Alert, Oriented, Normal Cognition, No Motor/Sensory Deficits Psychiatric: Normal Mood, Flat Affect Skin Exam: Warm, Dry, Intact, No Rash, Pallor Lymphatic: No Adenopathy Course - Vital Signs Last Recorded V/S: Last Vital Signs Temp 98.0 F 11/09/18 22:01 Pulse 96 11/09/18 22:01 Resp 18 11/09/18 22:01 BP 144/74 H 11/09/18 22:01 Pulse Ox 100 11/09/18 22:01 - Orders/Labs/Meds Orders: Active Orders 24 hr Category Date Time Status Chest 2V [CR] Urgent Exams 11/09/18 22:00 Taken - Radiology Interpretation Free Text/Narrative:: Chest xray: FINDINGS: Lungs: Unremarkable. No consolidation. Pleural space: Unremarkable. No pleural effusion. No pneumothorax. Heart/Mediastinum: Unremarkable. No cardiomegaly. Bones/joints: Age appropriate. IMPRESSION: No acute findings. Thank you for allowing us to participate in the care of your patient. Dictated and Authenticated by: Clifford Tomas MD 11/09/2018 11:14 PM Central Time ([place] & [place]) see rad report Departure - Departure Time of Disposition: 00:06 Disposition: Home, Self-Care 01 Condition: Fair Clinical Impression: Bronchitis, Bronchospasm - Discharge Information *PRESCRIPTION DRUG MONITORING PROGRAM REVIEWED*: No *COPY OF PRESCRIPTION DRUG MONITORING REPORT IN PATIENT PEACE: No Instructions: Acute Bronchitis, Adult, [id number]-[id number], Upper Respiratory Infection, Adult, [id number], Bronchospasm, Adult, [id number] Referrals: PCP,None [Ordering Only Provider] - Forms: ED Department Discharge Additional Instructions: May use over the counter Robitussin as directed for cough May use Tylenol and/or ibuprofen as directed for pain/fever Follow up with your primary care facility - My Orders Last 24 Hours: My Active Orders 11/09/18 22:00 Chest 2V [CR] Urgent - Assessment/Plan Last 24 Hours: My Active Orders 11/09/18 22:00 Chest 2V [CR] Urgent
== END 2018-11-10 00:09 | disposition home or self-care (01) ==
LOC: DL.ED 21:42
DX: J98.01 Acute bronchospasm (principal); J40 Bronchitis, not specified as acute or chronic
CPT/HCPCS: 71046; 99283-25

== ENCOUNTER 2018-11-25 14:30 | Emergency (ER) | payer OTHER, MEDICAID ==
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
== END 2018-11-25 16:00 | disposition home or self-care (01) ==
LOC: DL.ED 14:30
DX: S06.0X9A Concussion with loss of consciousness of unspecified duration, initial encounter (principal); S93.402A Sprain of unspecified ligament of left ankle, initial encounter; V89.2XXA Person injured in unspecified motor-vehicle accident, traffic, initial encounter
CPT/HCPCS: 70450; 73610-LT; 99284-25

== ENCOUNTER 2019-04-20 23:38 | Emergency (ER) | payer MEDICAID ==
[2019-04-21] MEDS ORDERED: Iopamidol 612 MG/ML 75 ML Bottle IVPUSH ONE (00:06)
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
[2019-04-21 00:22] LABS: ANION GAP 12.8; CHLORIDE,CL 107 mmol/L (101-111); SODIUM,NA 139 mmol/L (135-145)
== END 2019-04-21 01:07 | disposition home or self-care (01) ==
LOC: DL.ED 23:38
DX: R10.11 Right upper quadrant pain (principal)
CPT/HCPCS: 36415; 74177; 80053; 80305; 81003; 81025; 85025; 99284; Q9967

== ENCOUNTER 2020-05-25 20:27 | Emergency (ER) | payer MEDICAID ==
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
[2020-05-25 21:33] LABS: ANION GAP 14.5 mEq/L (7-13); CHLORIDE,CL 104 mmol/L (98-107); SODIUM,NA 141 mmol/L (136-145)
--- NOTE | 2020-05-25 23:43 | CT ---
PROCEDURE INFORMATION: Exam: CT Abdomen And Pelvis Without Contrast Exam date and time: 05/25/2020 10:23 PM Age: 19 years old Clinical indication: Other: Pain; Additional info: Llq abdominal pain with hematuria TECHNIQUE: Imaging protocol: Computed tomography of the abdomen and pelvis without contrast. Radiation optimization: All CT scans at this facility use at least one of these dose optimization techniques: automated exposure control; mA and/or kV adjustment per patient size (includes targeted exams where dose is matched to clinical indication); or iterative reconstruction. COMPARISON: CT Abdomen Pelvis w Cont 04/21/2019 12:36 AM FINDINGS: Lungs: The visualized lung bases are clear. Liver: The liver is normal. Gallbladder and bile ducts: The gallbladder is normal. There is no evidence of biliary ductal dilation. Pancreas: The pancreas is normal. Spleen: The spleen is normal. Adrenals: The adrenal glands are normal. Kidneys and ureters: The kidneys are normal. No hydronephrosis. No visible calculi. Stomach and bowel: Non-specific/nonobstructive intestinal gas pattern. There is no evidence of colitis/diverticulitis. Appendix: A normal appendix is identified. Intraperitoneal space: No free air. No free fluid. Vasculature: There is no aortic aneurysm. Lymph nodes: There is no adenopathy. There are multiple small nonspecific lymph nodes in the mesenteric fat of the right lower quadrant, but there are no nodes of pathologic dimensions present. There is no evidence of bowel inflammation, inflammatory stranding, fluid collections or abscess formation. No pelvic adenopathy. Urinary bladder: Bladder is normal. Reproductive: The uterus is normal. No adnexal mass. 15 mm right ovarian cyst/follicle.No further imaging is recommended. (Reference: Sam) Bones/joints: No acute bony findings are identified. Soft tissues: No acute soft tissue abnormalities are identified. IMPRESSION: 1. No hydronephrosis. No urolithiasis. 2. Normal appendix. 3. Question nonspecific mesenteric adenitis. REFERENCES: Sam et al. Management of Incidental Adnexal Findings on CT and MRI: A White Paper of the ACR Incidental Findings Committee, J Am Haley Radiol. 2019;17(2):248-254.
[2020-05-25] MEDS ORDERED: Acetaminophen 325 MG Tab PO ONE (23:50)
== END 2020-05-25 23:59 | disposition home or self-care (01) ==
LOC: DL.ED 20:27
DX: N83.201 Unspecified ovarian cyst, right side (principal); I88.0 Nonspecific mesenteric lymphadenitis; F84.0 Autistic disorder
CPT/HCPCS: 36415; 74176; 80053; 80305; 81003; 81025; 82150; 83690; 85025; 87040; 99284; A9270